=== PATIENT | female | born 1995 | race Two or more races ===

== ENCOUNTER 2024-09-03 06:55 | Day surgery (SDC) | payer OTHER ==
[~2024-09-03 06:55] MED LIST: Dexamethasone 4 MG/ML 5 ML MDV ONE; Ketorolac 30 MG/ML SDV ONE; Lidocaine 2% 5 ML SDV ONE; Morphine 10 MG/ML SDV ONE; Ondansetron 4 MG/2 ML SDV ONE; fentaNYL 100 MCG/2 ML SDV ONE; propofoL 100 ML ONE
[2024-09-03] MEDS ORDERED: Ondansetron 4 MG/2 ML SDV IVPUSH ONE (06:56)
[2024-09-03] MEDS ORDERED: Naloxone 0.4 MG/ML SDV IVPUSH PRN (06:57)
[2024-09-03] MEDS ORDERED: droPERidol 5 MG/2 ML SDV IVPUSH PRN (06:57)
[2024-09-03] MEDS ORDERED: Albuterol 0.083% 2.5 MG/3 ML Neb Soln NEB PRN (06:57)
[2024-09-03] MEDS ORDERED: Metoclopramide 10 MG/2 ML SDV IVPUSH PRN (06:57)
[2024-09-03] MEDS ORDERED: Ondansetron 4 MG/2 ML SDV IVPUSH PRN (06:57)
[2024-09-03] MEDS ORDERED: Phenylephrine HCl In 0.9% NaCl 1 MG/10 ML Syringe IVPUSH PRN (06:57)
[2024-09-03] MEDS ORDERED: HYDROmorphone 1 MG/ML Syringe IVPUSH PRN (06:57)
[2024-09-03] MEDS ORDERED: Morphine 2 MG/ML SYRINGE IVPUSH PRN (06:57)
[2024-09-03] MEDS ORDERED: fentaNYL 50 MCG/ML SDV IVPUSH PRN (06:57)
[2024-09-03 06:58] LABS: HEMATOCRIT 36.9 % (37.0-47.0); HEMOGLOBIN 13.2 g/dL (12.0-16.0); MEAN CORPUSCULAR HEMOGLOBIN 29.4 pg (28.0-32.0); MEAN CORPUSCULAR HGB CONC 35.8 g/dL (32.0-36.0); MEAN CORPUSCULAR VOLUME 82.2 fL (83.0-99.0); MEAN PLATELET VOLUME 9.3 fL (9.4-12.3); PLATELET COUNT,PLT 262 K/uL (150-400); RED BLOOD CELL COUNT 4.49 M/uL (4.10-5.30); WHITE BLOOD CELL COUNT,WBC 7.36 K/uL (3.9-11.3)
[2024-09-03] MEDS ORDERED: metroNIDAZOLE/Normal Saline 100 ML ONE (07:20)
[2024-09-03] MEDS: Lactated Ringers 1,000 ML IV SCH (07:22)
[2024-09-03] MEDS ORDERED: metroNIDAZOLE/Normal Saline 500 MG in Premix Bag 1 BAG IV ONE (07:25)
[2024-09-03] MEDS ORDERED: Bupivacaine 0.5%/EPINEPHrine 1:200,000 30 ML SDV ONE (07:42)
[2024-09-03] MEDS ORDERED: Acetaminophen 325 MG Tab PO PRN (08:19)
== END 2024-09-03 09:35 | disposition home or self-care (01) ==
LOC: MW.SDS 06:55
PROVIDERS: ATTEND Obstetrics & Gynecology
DX: O02.0 Blighted ovum and nonhydatidiform mole (principal)
CPT/HCPCS: 36415; 59812; 84703; 85027; 86850; 86900; 86901; J0131; J1100; J1836; J1885; J2270; J2405; J2704; J3010; J7120; 00940; J2272; J3490